=== PATIENT | male | born 1995 | race Caucasian/White ===

== ENCOUNTER 2017-12-05 16:49 | Outpatient (CLI) | payer BC, MEDICAID | END 2017-12-05 20:28 | disposition home or self-care (01) | LOC: SRD 16:49 | PROVIDERS: ATTEND Internal Medicine | DX: M25.521 Pain in right elbow (principal) ==

== ENCOUNTER 2018-11-05 16:27 | Outpatient (CLI) | payer BC, MEDICAID | END 2018-11-05 21:32 | disposition home or self-care (01) | LOC: SRD 16:27 | PROVIDERS: ATTEND Internal Medicine | DX: R76.11 Nonspecific reaction to tuberculin skin test without active tuberculosis (principal) | CPT/HCPCS: 71045 ==